=== PATIENT | female | born 1995 | race Asian ===

== ENCOUNTER → 2023-02-13 | Outpatient (CLI) | payer OTHER ==
--- NOTE | 2023-02-13 14:12 | Diagnostic Imaging Report ---
INDICATION: survey. TECHNIQUE: Multiple real-time grayscale images were obtained over the gravid uterus. COMPARISON: None FINDINGS: There is a single live fetus in a breech presentation. heart rate was recorded at 150 bpm. Placenta is anterior and low lying. The placental tip to the internal os is approximately 1.8 cm. Amniotic fluid index is 16 cm. Cervical length is 7.4 cm. survey shows kidneys, bladder and stomach to be unremarkable. brain is unremarkable. There is a four-chamber heart. There is a three-vessel cord with normal insertion. spine is unremarkable. Biometrical measurements are as follows: Biparietal 4.62 cm, age 20 weeks 0 days. Head circumference 17.39 cm, age 20 weeks 0 days. Abdominal circumference 14.75 cm, age 20 weeks 1 days. Femur length 3.23 cm, age 20 weeks 1 days. Sonographic estimate age: 20 weeks 1 days. Sonographic estimated date of delivery: 07/02/2023. Estimated Weight: 328 gm (+/- 48 gm). LMP percentile: 56%. heart rate: 150 beats per minute. number: 1 of 1. IMPRESSION: Single live IUP 20 weeks 1 day gestational age. Estimated date of confinement sonographically is 07/02/2023. Dictated by: Dictated on workstation # [id number]
== END ==
LOC: RAD 12:45
PROVIDERS: ATTEND Obstetrics & Gynecology
DX: Z36.89 Encounter for other specified antenatal screening (principal)
CPT/HCPCS: 76805

== ENCOUNTER → 2023-04-15 | Outpatient (CLI) | payer OTHER ==
--- NOTE | 2023-04-15 15:42 | Diagnostic Imaging Report ---
INDICATION: Low lying placenta. This study is performed for followup. TECHNIQUE: Multiple Real-time grayscale images were obtained over the gravid uterus. COMPARISON: 02/13/2023. FINDINGS: There is a single live fetus in a cephalic presentation. The heart rate was recorded at 163 BPM. The placenta is anterior and no longer low lying. The placental tip to the internal cervical os is approximately 3.4 cm. The amniotic fluid index is 14.5 cm. The cervical length is 5.7 cm. IMPRESSION: Unremarkable limited obstetrical ultrasound. The anterior placenta is no longer in a low lying position. Dictated by: Dictated on workstation # [id number]
== END ==
LOC: RAD 13:06
PROVIDERS: ATTEND Obstetrics & Gynecology
DX: O44.40 Low lying placenta NOS or without hemorrhage, unspecified trimester (principal); Z3A.00 Weeks of gestation of pregnancy not specified
CPT/HCPCS: 76816